=== PATIENT | female | born 1950 | race Two or more races ===

== ENCOUNTER 2023-08-12 03:02 | Emergency (ER) | payer OTHER ==
[~2023-08-12] VITALS: Ht 160 cm; Wt 50.0 kg
[2023-08-12] MEDS ORDERED: OXYCODONE W/ ACETAMINOPHEN 5/325MG TABLET PO ONE ×2 (03:45→06:00)
[2023-08-12 03:50] VITALS: PULSE 82; RESP 16; O2SAT 92
[2023-08-12 04:40] LABS: Basophils # (auto) 0 10 ^3/uL (0-0.2); Eosinophils # (auto) 0 10 ^3/uL (0-0.8); Eosinophils % (auto) 0.4 % (0.0-7.0); Hemoglobin 12.5 g/dL (12.2-16.2); Lymphocytes # (auto) 0.9 10 ^3/uL (0.4-5.4); Monocytes # (auto) 0.5 10 ^3/uL (0-1.3); Neutrophils # (auto) 7.1 10 ^3/uL (1.6-8.6); White Blood Cell 8.6 10^3/uL (4.4-10.8)
[2023-08-12 04:47] LABS: Basophils % (auto) 0.6 % (0.0-2.0); Hematocrit 37.8 % (36.0-46.0); Lymphocytes % (auto) 10.8 % (10.0-50.0); Mean Corpuscular Hemoglobin 35.4 pg (28.0-32.0); Mean Corpuscular Hgb Conc. 33.2 g/dL (32.0-36.0); Mean Corpuscular Volume 106.8 fL (80.0-100.0); Monocytes % (auto) 5.2 % (0.0-12.0); Red Blood Cells 3.54 10^6/uL (4.0-5.20); Red Cell Distribution Width 17.2 % (11.8-14.3)
[2023-08-12 07:34] LABS: Chloride 110 mmol/L (98-107); Potassium 3.5 mmol/L (3.5-5.1)
[2023-08-12 07:35] LABS: Anion Gap 10 (5-15); Carbon Dioxide 20 mmol/L (20-30); Sodium 140 mmol/L (136-145)
[2023-08-12 07:36] LABS: Calcium 9.1 mg/dL (8.5-10.1)
[2023-08-12 07:41] LABS: BUN/Creatinine Ratio 34.2 (10.0-20.0); Blood Urea Nitrogen 25 mg/dL (9-23); Glucose 100 mg/dL (74-106)
[2023-08-12 07:43] LABS: Creatine Kinase IFCC 152 U/L (34-145)
[2023-08-12 07:50] VITALS: PULSE 89; RESP 13; O2SAT 99
[2023-08-12 08:21] VITALS: BP 143/83; PULSE 106; RESP 19; TEMP 98.5; O2SAT 99
== END 2023-08-12 08:54 | disposition short-term general hospital (02) ==
LOC: ER 03:02 → EDBD 03:02 → ER 08:54
DX: S22.42XA Multiple fractures of ribs, left side, initial encounter for closed fracture (principal); S12.9XXA Fracture of neck, unspecified, initial encounter; S22.089A Unspecified fracture of T11-T12 vertebra, initial encounter for closed fracture; S27.2XXA Traumatic hemopneumothorax, initial encounter; I48.91 Unspecified atrial fibrillation; R42 Dizziness and giddiness; I10 Essential (primary) hypertension; W01.0XXA Fall on same level from slipping, tripping and stumbling without subsequent striking against object, initial encounter; Y93.89 Activity, other specified; Y92.89 Other specified places as the place of occurrence of the external cause; Y99.8 Other external cause status
CPT/HCPCS: 36415; 70450; 71250; 74176; 80048; 82550; 84484; 85025; 93005; 99291